=== PATIENT | female | born 1940 | race Hispanic/Latino ===

== ENCOUNTER 2019-04-03 05:53 | Observation (INO) | payer OTHER ==
[2019-03-31 11:20] VITALS: BP 130/66
[2019-03-31 11:43] LABS: BASOPHILS % (AUTO) 0.7 % (0.0-5.0); EOSINOPHILS % (AUTO) 1.3 % (0.0-8.0); LYMPHOCYTES % (AUTO) 33.2 % (21.0-51.0); MEAN CORPUSCULAR HEMOGLOBIN 28.7 pg (27.0-33.0); MEAN CORPUSCULAR HGB CONC 32.6 g/dL (32.0-36.0); MONOCYTES % (AUTO) 8.5 % (3.0-13.0); NEUTROPHILS % (AUTO) 56.3 % (40.0-77.0); PLATELET COUNT (AUTO) 358 K/uL (130-400); RED BLOOD CELL COUNT(AUTO) 4.55 MIL/uL (4.00-5.50); RED CELL DISTRIBUTION WIDTH 13.9 % (11.0-15.5); WHITE BLOOD COUNT (AUTO) 10.3 K/uL (4.8-10.8)
[2019-03-31 11:55] LABS: CREATININE 0.6 mg/dL (0.5-1.5); POTASSIUM 4.2 mmol/L (3.5-5.1)
[2019-04-03] VITALS (20 sets, daily range): BP systolic 110–147; BP diastolic 52–82
[~2019-04-03] VITALS: Ht 152.4 cm; Wt 56.2 kg
[~2019-04-03 05:53] MED LIST: ALENDRONATE IJ; ATOR10 PO; GABA-531 PO; LOSA100T58 PO
[2019-04-03] MEDS: CEFAZOLIN SODIUM 1 GM VIAL IVP SCH ×4 (06:00→17:57)
[2019-04-03] MEDS ORDERED: LACTATED RINGERS 1000ML 1,000 ML IV ONE (06:45)
[2019-04-03] MEDS ORDERED: BACITRACIN 50,000 UNIT VIAL ONE (06:51)
[2019-04-03] MEDS ORDERED: BUPIVACAINE/EPI/PF 0.25% 30ML VIAL IJ ONE (06:51)
[2019-04-03] MEDS ORDERED: DURAMORPH PF1 MG/ML 10ML AMP IV ONE (06:51)
[2019-04-03] MEDS ORDERED: THROMBIN-JMI 20000 UNIT KIT TP ONE (06:51)
[2019-04-03] MEDS ORDERED: PROPOFOL 10 MG/ML 20ML VIAL IV ONE (06:56)
[2019-04-03] MEDS ORDERED: GLYCOPYRROLATE 1 MG/5 ML SYRINGE ONE (06:56)
[2019-04-03] MEDS ORDERED: MIDAZOLAM HCL 1 MG/ML 2ML VIAL ONE (06:56)
[2019-04-03] MEDS ORDERED: SUCCINYLCHOLINE 200MG/10ML SYR ONE (06:56)
[2019-04-03] MEDS ORDERED: DEXAMETHASONE SOD PHOSPHATE 10MG/ML 1ML VIAL ONE ×2 (06:56→06:58)
[2019-04-03] MEDS ORDERED: LIDOCAINE PF 2% 5ML ABBOJECT ONE (06:56)
[2019-04-03] MEDS ORDERED: FENTANYL CITRATE PF 50 MCG/1 ML 2ML VIAL ONE (06:57)
[2019-04-03] MEDS ORDERED: ONDANSETRON HCL 4 MG/2 ML VIAL ONE (06:57)
[2019-04-03] MEDS ORDERED: NEOSTIGMINE 5MG/5ML SYR IV ONE (06:57)
[2019-04-03] MEDS ORDERED: EPHEDRINE SULFATE 50 MG/ML AMPULE ONE (08:08)
[2019-04-03] MEDS ORDERED: ESMOLOL HCL 10 MG/ML 10 ML VIAL ONE (10:19)
[2019-04-03] MEDS ORDERED: SODIUM CHLORIDE 0.9% 10 ML VIAL IVP PRN (10:45)
[2019-04-03] MEDS ORDERED: PROMETHAZINE HCL 25 MG/ML 1ML AMPULE IM PRN (10:45)
[2019-04-03] MEDS ORDERED: MORPHINE SULFATE 2 MG/ML 1ML SYG IVP PRN (10:45)
[2019-04-03] MEDS ORDERED: MEPERIDINE-PF 25 MG/ML SYG ONE ×2 (11:24→11:42)
[2019-04-03] MEDS: LACTATED RINGERS 1000ML 1,000 ML IV SCH ×2 (12:25→22:23)
[2019-04-03] MEDS: DEXAMETHASONE SOD PHOSPHATE 4 MG/ML 1ML VIAL IVP SCH ×3 (12:25→22:23)
[2019-04-03] MEDS ORDERED: PHARMACY COMMUNICATION MISC SCH (12:45)
--- NOTE | 2019-04-03 14:45 | NUR ---
KULDEEP DECOMPRESSED PER SIX ORDERS. NOTED SEROSANGUINEOUS FLUID IN KULDEEP. KULDEEP MAINTAINING NEGATIVE PRESSURE.
[2019-04-03] MEDS: HYDROCODONE/ACETAMINOPHEN 5/325 MG TAB PO PRN ×2 (16:02→20:43)
[2019-04-03] MEDS ORDERED: ATORVASTATIN CALCIUM 10 MG TABLET PO SCH (21:00)
[2019-04-03] MEDS ORDERED: GABAPENTIN 300 MG CAPSULE PO SCH (21:00)
[2019-04-04 00:25] VITALS: BP 105/55
[2019-04-04 04:00] VITALS: BP 116/56
[2019-04-04] MEDS: DEXAMETHASONE SOD PHOSPHATE 4 MG/ML 1ML VIAL IVP SCH (05:55)
[2019-04-04] MEDS: HYDROCODONE/ACETAMINOPHEN 5/325 MG TAB PO PRN (07:51)
[2019-04-04 08:04] VITALS: BP 130/71
[2019-04-04] MEDS ORDERED: LOSARTAN 100 MG TABLET PO SCH (09:00)
[2019-04-04 10:44] VITALS: BP 111/56
--- NOTE | 2019-04-04 11:28 | NUR ---
Discharge teaching completed in the room with pt and family lat side. [employer] telephone translation services utilized. Emphasis on Dr. Mcdonald's discharge orders for activity, incision care, and follow up care as well as s/s to monitor for and when to seek emergency care. Pt is to see Dr. Mcdonald on 04/11 for removal of laura. Encouraged pt to take staple remover kit with her to the appointment. Written rx for tramadol given to pt. Discussed purpose, route, frequency, and duration of treatment, as well as side effects and adverse effects. KULDEEP drain removed from incision, tip intact, appears smooth and cut, not jagged and torn. 3 intact laura to drain site. No active drainage. 21 intact laura to incision, no active drainage. Incision well approximated, appears asymptomatic. Painted incision and drain site with betadine, dressed with sterile non adherent gauze. Pt tolerated well. PIV removed, tip intact. Dressed with sterile 2x2 and band aid after hemostasis. Pt wheeled to front lobby by [facility] staff for transport home via private car. Pt in stable condition at time of discharge.
== END 2019-04-04 11:28 | disposition home or self-care (01) ==
LOC: DAH 05:53 → 4AH 05:54 → DAH 05:54
PROVIDERS: ADMIT Neurological Surgery; ATTEND Neurological Surgery
DX: M48.061 Spinal stenosis, lumbar region without neurogenic claudication (principal); E78.5 Hyperlipidemia, unspecified; M41.9 Scoliosis, unspecified; M47.9 Spondylosis, unspecified; Z90.710 Acquired absence of both cervix and uterus; Z90.49 Acquired absence of other specified parts of digestive tract; Z98.49 Cataract extraction status, unspecified eye; Z82.49 Family history of ischemic heart disease and other diseases of the circulatory system; Z80.9 Family history of malignant neoplasm, unspecified; Z79.899 Other long term (current) drug therapy
CPT/HCPCS: 36415; 63047; 63048 ×3; 72020; 80048; 85025; 96374; 96375; 96376 ×2; A4344; A4510; A4600; A4649 ×4; G0378 ×24; J0330; J0690 ×2; J1100 ×5; J2001; J2175 ×2; J2250; J2274; J2405; J2704; J2710; J3010; J3490 ×4; J7030; J7120 ×3